=== PATIENT | female | born 1975 | race Caucasian/White ===

== ENCOUNTER 2016-03-23 17:18 | Emergency (ER) | payer SELFPAY ==
[2016-03-23] MEDS ORDERED: NORMAL SALINE 1000 ML 1,000 ML IV ONE (19:49)
[2016-03-23] MEDS ORDERED: ONDANSETRON HCL INJ/PF 4 MG/2 ML SDV IV ONE (19:49)
[2016-03-23] MEDS ORDERED: KETOROLAC TROMETHAMINE INJ/PF 30 MG/1 ML SDV IV ONE (19:49)
--- NOTE | 2016-03-23 19:52 | ER Document Report ---
ED General - General Chief Complaint: Flu Symptoms Stated Complaint: FEVER/VOMITING/DIARRHEA Time seen by provider: 19:40 Notes: Patient is a 40-year-old female that comes emergency department with chief complaint of fever and hurting all over today with nausea, she states that yesterday she was having nausea and vomiting, also vomited today, denies diarrhea, she states that she had a cough but this also seems to be improving. Patient denies any specific areas of abdominal pain, denies neck pain, flank pain, headache. Patient unsure of sick contacts. PMH of PCOS, takes no daily medications. TRAVEL OUTSIDE OF THE [place] IN LAST 30 DAYS: No - Related Data Allergies/Adverse Reactions: Antihistamines - Alkylamine Adverse Reaction (Verified 02/24/16 05:18) "allergy medicine" Adverse Reaction (Uncoded 07/13/15 13:43) Past Medical History - General Information source: Patient - Social History Smoking Status: Former Smoker Frequency of alcohol use: None Drug Abuse: None Lives with: Family Family History: Reviewed & Not Pertinent Pulmonary Medical History: Reports: Hx COPD Neurological Medical History: Reports: Hx Migraine Renal/ Medical History: Reports: Hx Kidney Stones, Hx Ovarian Cysts GI Medical History: Reports: Hx Gastroesophageal Reflux Disease Musculoskeltal Medical History: Reports Hx Arthritis Psychiatric Medical History: Reports: Hx Depression Past Surgical History: Reports: Hx Cholecystectomy, Hx Gynecologic Surgery - ovarian surgery, Hx Hysterectomy - Immunizations Immunizations up to date: Yes Hx Diphtheria, Pertussis, Tetanus Vaccination: Yes Review of Systems - Review of Systems Constitutional: See HPI EENT: No symptoms reported Cardiovascular: No symptoms reported Respiratory: See HPI Gastrointestinal: See HPI Genitourinary: No symptoms reported Female Genitourinary: No symptoms reported Musculoskeletal: See HPI Skin: No symptoms reported Hematologic/Lymphatic: No symptoms reported Neurological/Psychological: No symptoms reported Physical Exam - Vital signs Vitals: Temp Pulse Resp BP Pulse Ox 98.3 F 70 17 128/78 H 100 03/23/16 22:53 03/23/16 22:53 03/23/16 22:53 03/23/16 22:53 03/23/16 22:53 Interpretation: Normal - General General appearance: Alert, Other - Patient slightly disheveled and slightly under the weather in appearance, no distress In distress: None - HEENT Head: Normocephalic, Atraumatic Eyes: Normal Conjunctiva: Normal Extraocular movements intact: Yes Eyelashes: Normal Pupils: PERRL Ears: Normal External canal: Normal Tympanic membrane: Normal Sinus: Normal Nasal: Normal Mouth/Lips: Normal Mucous membranes: Normal Pharynx: Normal Neck: Normal - Respiratory Respiratory status: No respiratory distress Chest status: Nontender Breath sounds: Normal Chest palpation: Normal - Cardiovascular Rhythm: Regular Heart sounds: Normal auscultation Murmur: No - Abdominal Inspection: Normal Distension: No distension Bowel sounds: Normal Tenderness: Tender - Very mild generalized tenderness, nonspecific, no guarding Organomegaly: No organomegaly - Back Back: Normal, Nontender. No: Tender - Extremities General upper extremity: Normal inspection, Nontender, Normal color, Normal ROM , Normal temperature General lower extremity: Normal inspection, Nontender, Normal color, Normal ROM , Normal temperature, Normal weight bearing. No: Milagro's sign - Neurological Neuro grossly intact: Yes Cognition: Normal Orientation: AAOx4 Vera Coma Scale Eye Opening: Spontaneous Tridell Coma Scale Verbal: Oriented Vera Coma Scale Motor: Obeys Commands Vera Coma Scale Total: 15 Speech: Normal Motor strength normal: LUE, RUE, LLE, RLE Sensory: Normal - Psychological Associated symptoms: Normal affect, Normal mood - Skin Skin Temperature: Warm Skin Moisture: Dry Skin Color: Normal Course - Re-evaluation Re-evalutation: CBC, chemistry, urinalysis unremarkable, chest x-ray unremarkable, suspect patient has a viral syndrome. Treated with antinausea medications, provided with work release note. Discussed with patient, she states she'll follow-up with primary care and return for any concerning symptoms. - Vital Signs Vital signs: Temp Pulse Resp BP Pulse Ox 98.3 F 70 17 128/78 H 100 03/23/16 22:53 03/23/16 22:53 03/23/16 22:53 03/23/16 22:53 03/23/16 22:53 - Laboratory Result Diagrams: 03/23/16 21:00 03/23/16 21:00 Laboratory results interpreted by me: 03/23/16 03/23/16 21:00 21:00 Total Protein 6.0 L Ur Leukocyte Esterase TRACE H Discharge - Discharge Clinical Impression: Nausea, Body aches Condition: Stable Disposition: HOME, SELF-CARE Additional Instructions: Your workup is most consistent with a viral illness. Take Zofran or Phenergan for nausea, take Tylenol or ibuprofen for fever, drink plenty of fluids and rest. Follow-up with primary care. Return to emergency department for any concerning or worsening symptoms. Prescriptions: Promethazine HCl [Phenergan 25 mg Tablet] 1 - 2 tab PO Q6H PRN #20 tablet PRN Reason: Forms: Return to Work
[2016-03-23 21:20] LABS: ABSOLUTE BASOPHILS # (AUTO) 0.1 10^3/uL (0.0-0.2); ABSOLUTE EOSINOPHILS # (AUTO) 0.5 10^3/uL (0.0-0.6); ABSOLUTE LYMPHOCYTES (AUTO) 3.1 10^3/uL (0.5-4.7); ABSOLUTE MONOCYTES (AUTO) 0.8 10^3/uL (0.1-1.4); ABSOLUTE NEUT (AUTO) 5.1 10^3/uL (1.7-8.2); BASOPHILS % (AUTO) 0.7 % (0-2); EOSINOPHILS % (AUTO) 5.2 % (0-6); HEMOGLOBIN 14.3 g/dL (12.0-15.5); HGB HCT DIFFERENCE 0.9; LYMPHOCYTES % (AUTO) 32.4 % (13-45); MEAN CORPUSCULAR HEMOGLOBIN 30.9 pg (27.0-33.4); MEAN CORPUSCULAR VOLUME 91 fl (80-97); MONOCYTES % (AUTO) 8.1 % (3-13); RED BLOOD COUNT 4.63 10^6/uL (3.72-5.28); SEGMENTED NEUTROPHILS % (AUTO) 53.6 % (42-78); WHITE BLOOD COUNT 9.5 10^3/uL (4.0-10.5)
[2016-03-23 21:35] LABS: ALANINE AMINOTRANSFERASE 39 U/L (9-52); ALBUMIN 3.7 g/dL (3.5-5.0); ALKALINE PHOSPHATASE 69 U/L (38-126); ANION GAP 9 (5-19); ASPARTATE AMINO TRANSFERASE 21 U/L (14-36); BILIRUBIN,TOTAL 0.6 mg/dL (0.2-1.3); BLOOD UREA NITROGEN 12 mg/dL (7-20); CALCIUM 8.9 mg/dL (8.4-10.2); CARBON DIOXIDE 27 mmol/L (22-30); CHLORIDE 103 mmol/L (98-107); CREATININE RESULT 0.83 mg/dL (0.52-1.25); GLUCOSE 108 mg/dL (75-110); POTASSIUM 4.1 mmol/L (3.6-5.0); SODIUM 138.7 mmol/L (137-145)
[2016-03-23 21:37] LABS: AMORPHOUS SEDIMENT,URINE TRACE /HPF; APPEARANCE,URINE CLOUDY; BILIRUBIN,URINE NEGATIVE (NEGATIVE); GLUCOSE, URINE NEGATIVE (NEGATIVE); KETONES,URINE NEGATIVE (NEGATIVE); LEUKOCYTE ESTERASE,URINE TRACE (NEGATIVE); NITRITE,URINE NEGATIVE (NEGATIVE); PROTEIN,URINE NEGATIVE (NEGATIVE); UROBILINOGEN,URINE NEGATIVE mg/dL (<2.0)
[2016-03-23] MEDS ORDERED: ONDANSETRON ODT 4 MG TAB (6 TAB/DSPK) PO PRN (22:36)
[2016-03-23 22:54] VITALS: BP 128/78
[2016-03-23] MEDS ORDERED: HYDROCODONE/ACETAMINOPHEN 5-325 MG 6 TAB/DSPK PO PRN (23:03)
== END 2016-03-23 23:10 | disposition home or self-care (01) ==
LOC: ER 17:18
DX: R11.2 Nausea with vomiting, unspecified (principal); R52 Pain, unspecified; R50.9 Fever, unspecified; R10.817 Generalized abdominal tenderness; J44.9 Chronic obstructive pulmonary disease, unspecified; Z87.891 Personal history of nicotine dependence
CPT/HCPCS: 99283; 96361; 96374; 36415; 85025; 81025; 80053; 81001; 71020; J1885; J2405; J7030

== ENCOUNTER 2016-05-03 13:18 | Emergency (ER) | payer SELFPAY ==
--- NOTE | 2016-05-03 13:39 | ER Document Report ---
ED Medical Screen (RME) - General Stated Complaint: SORE THROAT,SWELLING Time seen by provider: 13:38 Mode of Arrival: Ambulatory Information source: Patient Notes: 40-year-old female ate a chili dog at [facility] and found glass that she was chewing on that was in the chili. They used canned [employer] chili. She feels some irritation to the posterior pharynx and feels a little swollen farther down. Oropharynx no swelling by my physical exam at [facility]. feels raw. TRAVEL OUTSIDE OF THE [place] IN LAST 30 DAYS: No - Related Data Allergies/Adverse Reactions: Antihistamines - Alkylamine Adverse Reaction (Verified 02/24/16 05:18) "allergy medicine" Adverse Reaction (Uncoded 07/13/15 13:43) Past Medical History Pulmonary Medical History: Reports: Hx COPD Neurological Medical History: Reports: Hx Migraine Renal/ Medical History: Reports: Hx Kidney Stones, Hx Ovarian Cysts GI Medical History: Reports: Hx Gastroesophageal Reflux Disease Musculoskeltal Medical History: Reports Hx Arthritis Psychiatric Medical History: Reports: Hx Depression Past Surgical History: Reports: Hx Cholecystectomy, Hx Gynecologic Surgery - ovarian surgery, Hx Hysterectomy - Immunizations Immunizations up to date: Yes Hx Diphtheria, Pertussis, Tetanus Vaccination: Yes Physical Exam - Vital signs Vitals: Temp Pulse Resp BP Pulse Ox 98.1 F 86 20 117/75 97 05/03/16 13:32 05/03/16 13:32 05/03/16 13:32 05/03/16 13:32 05/03/16 13:32 Course - Vital Signs Vital signs: Temp Pulse Resp BP Pulse Ox 98.1 F 86 20 117/75 97 05/03/16 13:32 05/03/16 13:32 05/03/16 13:32 05/03/16 13:32 05/03/16 13:32
--- NOTE | 2016-05-03 14:20 | ER Document Report ---
HPI - HPI Patient complains to provider of: swallowed glass Onset: This afternoon Onset/Duration: Sudden Quality of pain: Burning Severity: Severe Pain Level: 4 Context: Patient presents to the emergency department with complaints of sore throat after eating a chili dog confining glass in it from [employer]. Patient presents with picture of a piece of glass approximately 1 mm on the tip of her finger. Patient is speaking in clear voice. Patient denies spitting up blood. Patient reports something feels like it stuck in her throat. Associated Symptoms: None Exacerbated by: Denies Relieved by: Denies Similar symptoms previously: No Recently seen / treated by doctor: No - REPRODUCTIVE Reproductive: DENIES: : - DERM Skin Color: Normal, [place] Past Medical History - General Information source: Patient Last Menstrual Period: mar - Social History Smoking Status: Current Every Day Smoker Cigarette use (# per day): Yes Frequency of alcohol use: None Drug Abuse: None Occupation: [employer] Family History: Reviewed & Not Pertinent, Thyroid Disfunction - brother Patient has suicidal ideation: No Patient has homicidal ideation: No Pulmonary Medical History: Reports: Hx COPD Neurological Medical History: Reports: Hx Migraine Renal/ Medical History: Reports: Hx Kidney Stones, Hx Ovarian Cysts. Denies: Hx Peritoneal Dialysis GI Medical History: Reports: Hx Gastroesophageal Reflux Disease Musculoskeltal Medical History: Reports Hx Arthritis Psychiatric Medical History: Reports: Hx Depression Past Surgical History: Reports: Hx Cholecystectomy, Hx Gynecologic Surgery - ovarian surgery, Hx Hysterectomy - Immunizations Immunizations up to date: Yes Hx Diphtheria, Pertussis, Tetanus Vaccination: Yes Vertical Provider Document - CONSTITUTIONAL Agree With Documented VS: Yes Exam Limitations: No Limitations General Appearance: WD/WN, No Apparent Distress - INFECTION CONTROL TRAVEL OUTSIDE OF THE [place] IN LAST 30 DAYS: No - HEENT HEENT: Atraumatic, Normocephalic. negative: Pharyngeal Erythema - No peritonsillar abscess good clear voice no trismus, opens mouth wide, no lacerations noted, drinking mountain dew - NECK Neck: Normal Inspection, Supple. negative: Lymphadenopathy-Left, Lymphadenopathy-Right - RESPIRATORY Respiratory: Breath Sounds Normal, No Respiratory Distress O2 Sat by Pulse Oximetry: 97 - CARDIOVASCULAR Cardiovascular: Regular Rate - MUSCULOSKELETAL/EXTREMETIES Musculoskeletal/Extremeties: ROWENA BALDWIN - NEURO Level of Consciousness: Awake, Alert, Appropriate Motor/Sensory: No Motor Deficit - DERM Integumentary: Warm, Dry Course - Re-evaluation Re-evalutation: 05/03/16 18:28 I have consulted the attending provider dr espinoza per [facility] guidelines, he agrees with ct soft tissue Reviewed results with Dr Espinoza, pt advised to fu with pcp, [facility] for further eval of thyroid nodule. She was instructed to return to ED if unable to obtain fu or problems swallowing, she was also instructed to monitor her stool for blood. She verbalized understanding. - Vital Signs Vital signs: Temp Pulse Resp BP Pulse Ox 98.1 F 86 20 117/75 97 05/03/16 13:39 05/03/16 13:39 05/03/16 13:39 05/03/16 13:39 05/03/16 13:39 - Diagnostic Test Radiology reviewed: Image reviewed, Reports reviewed - IMPRESSION: 1. No CT evidence of esophageal foreign body. 2. Nonspecific thyroid nodules as detailed above. Consider routine thyroid ultrasound on an outpatient basis. Discharge - Discharge Clinical Impression: Sore throat, swallowed glass, Thyroid nodule Condition: Stable Disposition: HOME, SELF-CARE Instructions: Sore Throat ([facility]), Family Physicians / Practices Additional Instructions: *You have been evaluated for after swallowing glass , thyroid nodule *Warm salt water gargles and throat lozenges for comfort *Follow-up with your primary care provider within one week for a recheck of your throat and evaluation of thyroid with Ultra sound *Return to ED for worsening condition change, needs, difficulty swallowing, concerns Forms: Return to Work
[2016-05-03 17:29] VITALS: BP 118/74
== END 2016-05-03 17:20 | disposition home or self-care (01) ==
LOC: ER 13:18
DX: T18.9XXA Foreign body of alimentary tract, part unspecified, initial encounter (principal); J02.9 Acute pharyngitis, unspecified; E04.1 Nontoxic single thyroid nodule; X58.XXXA Exposure to other specified factors, initial encounter; F17.210 Nicotine dependence, cigarettes, uncomplicated
CPT/HCPCS: 70360; 70491; 99283

== ENCOUNTER 2016-09-19 20:08 | Emergency (ER) | payer SELFPAY ==
[2016-09-19] MEDS ORDERED: CIPROFLOXACIN HCL/DEXAMETH OTIC DROP 7.5 ML AS ONE (22:16)
[2016-09-19] MEDS ORDERED: HYDROCODONE/ACETAMINOPHEN 5-325 MG 6 TAB/DSPK PO PRN (22:16)
--- NOTE | 2016-09-19 22:26 | ER Document Report ---
HPI - HPI Patient complains to provider of: left ear pain, rash Pain Level: 5 Context: Patient is a 40-year-old female who comes emergency department for chief complaint of left ear pain, she states that this has progressively worsened over the past several days, she states that there is also a pimple-like area inside of the earlobe that she scratched open and now the area around this has become red. She wonders if she was originally bitten by an insect. Up-to-date on tetanus within 5 years. she denies any fever or chills, drainage from the ear , dizziness, vomiting, injury, or recent swimming. - REPRODUCTIVE Reproductive: DENIES: : - DERM Skin Color: Normal Past Medical History - General Information source: Patient - Social History Smoking Status: Former Smoker Drug Abuse: None Lives with: Family Family History: Reviewed & Not Pertinent, Thyroid Disfunction - brother Patient has suicidal ideation: No Patient has homicidal ideation: No Pulmonary Medical History: Reports: Hx COPD Neurological Medical History: Reports: Hx Migraine Renal/ Medical History: Reports: Hx Kidney Stones, Hx Ovarian Cysts. Denies: Hx Peritoneal Dialysis GI Medical History: Reports: Hx Gastroesophageal Reflux Disease Musculoskeltal Medical History: Reports Hx Arthritis Psychiatric Medical History: Reports: Hx Depression Past Surgical History: Reports: Hx Cholecystectomy, Hx Gynecologic Surgery - ovarian surgery, Hx Hysterectomy - Immunizations Immunizations up to date: Yes Hx Diphtheria, Pertussis, Tetanus Vaccination: Yes Vertical Provider Document - CONSTITUTIONAL General Appearance: WD/WN, Mild Distress - Patient appears to be in some pain, holding her left ear - INFECTION CONTROL TRAVEL OUTSIDE OF THE [place] IN LAST 30 DAYS: No - HEENT HEENT: Atraumatic, Normocephalic. negative: Normal ENT Exam - Eardrums unremarkable bilaterally, left ear canal very swollen with erythema, no abscess or foreign body noted, no drainage. Tragus is tender, there is also erythema inside of the earlobe with an excoriated area, no induration or fluctuance. Mastoid normal. - NECK Neck: Normal Inspection - RESPIRATORY Respiratory: Breath Sounds Normal, No Respiratory Distress O2 Sat by Pulse Oximetry: 98 - CARDIOVASCULAR Cardiovascular: Regular Rate, Regular Rhythm - GI/ABDOMEN Gastrointestinal: Abdomen Soft, Abdomen Non-Tender - MUSCULOSKELETAL/EXTREMETIES Musculoskeletal/Extremeties: MAEW, FROM, Non-Tender - NEURO Level of Consciousness: Awake, Alert, Appropriate - DERM Integumentary: Warm, Dry, No Rash Course - Re-evaluation Re-evalutation: There is an excoriated area over the external ear with some mild surrounding redness but no induration or fluctuance. Covering the Bactrim. Ear wick placed for otitis externa, patient given Ciprodex drops to continue to use at home, patient will be given pain medication, discussed follow-up, discussed return precautions, patient states understanding and agreement - Vital Signs Vital signs: Temp Pulse Resp BP Pulse Ox 98.6 F 105 H 18 140/87 H 98 09/19/16 20:14 09/19/16 20:14 09/19/16 20:14 09/19/16 20:14 09/19/16 20:14 Discharge - Discharge Clinical Impression: Left ear pain Otitis externa Qualifiers: Otitis externa type: unspecified type Chronicity: acute Laterality: left Qualified Code(s): H60.502 - Unspecified acute noninfective otitis externa, left ear Condition: Stable Disposition: HOME, SELF-CARE Instructions: Use of Ear Drops ([facility]), Otitis Externa ([facility]), Using Ear Drops with a Wick ([facility]) Additional Instructions: Examination shows infection of the ear canal, otitis externa, use the wick, apply the drops in the wick as the insert describes (take drops for 1 week), also take the Bactrim antibiotic from localized skin infection on the outside of the ear. Take pain medication given if needed. Return to emergency department for any concerning or worsening symptoms including dizziness, vomiting, fever, swelling of the ear or behind the ear, or any other concerning symptoms. Prescriptions: Hydrocodone/Acetaminophen [Clemons 5-325 mg Tablet] 1 - 2 tab PO ASDIR #10 tablet Sulfamethoxazole/Trimethoprim [Bactrim Ds Tablet] 1 each PO BID #14 tablet
[2016-09-19 22:38] VITALS: BP 134/77
== END 2016-09-19 22:41 | disposition home or self-care (01) ==
LOC: ER 20:08
DX: H60.502 Unspecified acute noninfective otitis externa, left ear (principal); H92.02 Otalgia, left ear; J44.9 Chronic obstructive pulmonary disease, unspecified; Z87.891 Personal history of nicotine dependence
CPT/HCPCS: 99282; J3490

== ENCOUNTER 2017-10-28 22:10 | Emergency (ER) | payer SELFPAY ==
[2017-10-29] MEDS ORDERED: CLINDAMYCIN HCL 150 MG CAPSULE PO ONE (01:09)
--- NOTE | 2017-10-29 01:11 | ER Document Report ---
ED General - General Chief Complaint: Insect Bite Stated Complaint: INFECTED BITE,BACK PAIN Time Seen by Provider: 10/29/17 00:33 Notes: Patient is a 42-year-old female who presents with complaint of a red spot on her left thigh that she thinks may be infected. She denies any fevers. She has been there for about 2 days. No other complaints at this time. No previous history of abscesses. She does not member pulling any bugs off or any ticks off her in this area. TRAVEL OUTSIDE OF THE [place] IN LAST 30 DAYS: No - Related Data Allergies/Adverse Reactions: Antihistamines - Alkylamine Adverse Reaction (Verified 02/24/16 05:18) "allergy medicine" Adverse Reaction (Uncoded 07/13/15 13:43) Past Medical History - Social History Smoking Status: Unknown if Ever Smoked Frequency of alcohol use: None Drug Abuse: None Family History: Reviewed & Not Pertinent, Thyroid Disfunction - brother Pulmonary Medical History: Reports: Hx COPD Neurological Medical History: Reports: Hx Migraine Renal/ Medical History: Reports: Hx Kidney Stones, Hx Ovarian Cysts. Denies: Hx Peritoneal Dialysis GI Medical History: Reports: Hx Gastroesophageal Reflux Disease Musculoskeletal Medical History: Reports Hx Arthritis Psychiatric Medical History: Reports: Hx Depression Past Surgical History: Reports: Hx Cholecystectomy, Hx Gynecologic Surgery - ovarian surgery, Hx Hysterectomy - Immunizations Immunizations up to date: Yes Hx Diphtheria, Pertussis, Tetanus Vaccination: Yes Review of Systems - Review of Systems Notes: My Normal Review Basic REVIEW OF SYSTEMS: CONSTITUTIONAL : Denies fever, chills, or sweats. Denies recent illness. MUSCULOSKELETAL: Painful red lesion on left thigh. SKIN: Denies rash or skin lesions. ALL OTHER SYSTEMS REVIEWED AND NEGATIVE. Physical Exam - Vital signs Vitals: Temp Pulse Resp BP Pulse Ox 98.0 F 92 18 133/86 H 98 10/28/17 23:01 10/28/17 23:01 10/28/17 23:01 10/28/17 23:01 10/28/17 23:01 - Notes Notes: General Appearance: Well nourished, alert, cooperative, no acute distress, no obvious discomfort. Vitals: reviewed, See vital signs table. Eyes: PERRL, EOMI, Conjuctiva clear Extremities: good pulses in all extremities, shins has a 1 cm area of induration with approximately 3 cm of surrounding erythema over the left thigh. No significant fluctuance. Consistent with infected hair follicle. Skin: warm, dry, appropriate color, no rash Neuro: speech clear, oriented x 3, normal affect, responds appropriately to questions. Course - Re-evaluation Re-evalutation: 10/29/17 07:24 Point quick needle aspiration over the area of induration see if there is an associated pus. There is no pus aspirated. Patient was placed on clindamycin. She is encouraged to return to ER if she has spreading redness, increasing swelling or induration, fevers, or she feels that she is worsening in any way. Patient agrees with plan will be discharged home. Dictation of this chart was performed using voice recognition software; therefore, there may be some unintended grammatical errors. - Vital Signs Vital signs: Temp Pulse Resp BP Pulse Ox 97.8 F 81 16 147/89 H 97 10/29/17 01:41 10/29/17 01:41 10/29/17 01:41 10/29/17 01:41 10/29/17 01:41 Discharge - Discharge Clinical Impression: Hair follicle infection Cellulitis Qualifiers: Site of cellulitis: extremity Site of cellulitis of extremity: lower extremity Laterality: left Qualified Code(s): L03.116 - Cellulitis of left lower limb Condition: Good Disposition: HOME, SELF-CARE Additional Instructions: Please take the antibiotics as prescribed. please apply warm compresses. Please return to the ER if you have spreading redness, fevers, increasing swelling, or feel that your infection is worsening. Prescriptions: Clindamycin HCl 300 mg PO ASDIR #56 capsule Forms: Return to Work Referrals: ISABELL HOBSON MD [Primary Care Provider] - Follow up in 3-5 days
[2017-10-29 01:43] VITALS: BP 147/89
== END 2017-10-29 01:49 | disposition home or self-care (01) ==
LOC: ER 22:10
DX: L03.116 Cellulitis of left lower limb (principal); J44.9 Chronic obstructive pulmonary disease, unspecified
CPT/HCPCS: 99281

== ENCOUNTER 2018-12-27 16:45 | Emergency (ER) | payer SELFPAY ==
--- NOTE | 2018-12-27 19:13 | ER Document Report ---
ED Medical Screen (RME) - General Chief Complaint: Flank Pain Stated Complaint: FLANK PAIN Time Seen by Provider: 12/27/18 19:10 Primary Care Provider: ISABELL HOBSON MD [Primary Care Provider] - Follow up as needed Mode of Arrival: Ambulatory Information source: Patient Notes: 43-year-old female presents to ED for complaint of cough cold congestion fatigue renal insufficiency and bilateral flank pain worse on the right. She states she is also been nauseated but has not vomited. She states she just is so fatigued that she can barely go to work. She is alert oriented respirations regular and unlabored. She states she does have a history of renal insufficiency PCOS vertigo and kidney stones. She has had a gallbladder removed and kidney stones removed. She states she does smoke 15 cigarettes a day drinks monthly does not do any illicit drugs. I have greeted and performed a rapid initial assessment of this patient. A comprehensive ED assessment and evaluation of the patient, analysis of test results and completion of medical decision making process will be conducted by an additional ED providers. TRAVEL OUTSIDE OF THE [place] IN LAST 30 DAYS: No - Related Data Allergies/Adverse Reactions: Antihistamines - Alkylamine Adverse Reaction (Verified 02/24/16 05:18) "allergy medicine" Adverse Reaction (Uncoded 07/13/15 13:43) Past Medical History Pulmonary Medical History: Reports: Hx COPD Neurological Medical History: Reports: Hx Migraine Renal/ Medical History: Reports: Hx Kidney Stones, Hx Ovarian Cysts. Denies: Hx Peritoneal Dialysis GI Medical History: Reports: Hx Gastroesophageal Reflux Disease Musculoskeltal Medical History: Reports Hx Arthritis Psychiatric Medical History: Reports: Hx Depression Past Surgical History: Reports: Hx Cholecystectomy, Hx Gynecologic Surgery - ovarian surgery, Hx Hysterectomy - Immunizations Immunizations up to date: Yes Hx Diphtheria, Pertussis, Tetanus Vaccination: Yes Physical Exam - Vital signs Vitals: Temp Pulse Resp BP Pulse Ox 99.0 F 91 18 132/80 H 98 12/27/18 17:45 12/27/18 17:45 12/27/18 17:45 12/27/18 17:45 12/27/18 17:45 Course - Vital Signs Vital signs: Temp Pulse Resp BP Pulse Ox 99.0 F 91 18 132/80 H 98 12/27/18 17:45 12/27/18 17:45 12/27/18 17:45 12/27/18 17:45 12/27/18 17:45 Doctor's Discharge - Discharge Referrals: ISABELL HOBSON MD [Primary Care Provider] - Follow up as needed
--- NOTE | 2018-12-27 20:01 | RADIOLOGY REPORT (SQ) ---
EXAM DESCRIPTION: CHEST 2 VIEWS COMPLETED DATE/TIME: 12/27/2018 7:51 pm REASON FOR STUDY: Cough congestion COMPARISON: 03/23/2016 EXAM PARAMETERS: NUMBER OF VIEWS: two views TECHNIQUE: Digital Frontal and Lateral radiographic views of the chest acquired. RADIATION DOSE: NA LIMITATIONS: none FINDINGS: LUNGS AND PLEURA: No opacities, masses or pneumothorax. No pleural effusion. MEDIASTINUM AND HILAR STRUCTURES: No masses or contour abnormalities. HEART AND VASCULAR STRUCTURES: Heart normal size. No evidence for failure. BONES: No acute findings. HARDWARE: None in the chest. OTHER: No other significant finding. IMPRESSION: NO ACUTE RADIOGRAPHIC FINDING IN THE CHEST. TECHNICAL DOCUMENTATION: JOB ID: [id number] [employer]- All Rights Reserved Reading location - IP/workstation name: [email or web address]
[2018-12-27 20:30] LABS: ABSOLUTE EOSINOPHILS # (AUTO) 0.4 10^3/uL (0.0-0.6); ABSOLUTE LYMPHOCYTES (AUTO) 1.2 10^3/uL (0.5-4.7); ABSOLUTE MONOCYTES (AUTO) 0.7 10^3/uL (0.1-1.4); BASOPHILS % (AUTO) 0.4 % (0-2); EOSINOPHILS % (AUTO) 5.2 % (0-6); HEMATOCRIT 41.8 % (36.0-47.0); HEMOGLOBIN 14.1 g/dL (12.0-15.5); LYMPHOCYTES % (AUTO) 16.9 % (13-45); MEAN CORPUSCULAR HEMOGLOBIN 30.2 pg (27.0-33.4); MEAN CORPUSCULAR HGB CONC 33.8 g/dL (32.0-36.0); MEAN CORPUSCULAR VOLUME 89 fl (80-97); MONOCYTES % (AUTO) 9.5 % (3-13); PLATELET COUNT 199 10^3/uL (150-450); RED BLOOD COUNT 4.68 10^6/uL (3.72-5.28); RED CELL DISTRIBUTION WIDTH 13.6 % (11.5-14.0); TOTAL CELLS COUNTED % (AUTO) 100 %; WHITE BLOOD COUNT 7.4 10^3/uL (4.0-10.5)
[2018-12-27 20:32] LABS: APPEARANCE,URINE SLIGHTLY-CLOUDY; BILIRUBIN,URINE NEGATIVE (NEGATIVE); COLOR,URINE YELLOW; GLUCOSE, URINE NEGATIVE (NEGATIVE); KETONES,URINE NEGATIVE (NEGATIVE); LEUKOCYTE ESTERASE,URINE NEGATIVE (NEGATIVE); NITRITE,URINE NEGATIVE (NEGATIVE); PROTEIN,URINE NEGATIVE (NEGATIVE); URINE SPECIFIC GRAVITY 1.021; UROBILINOGEN,URINE NEGATIVE mg/dL (<2.0)
[2018-12-27 21:01] LABS: BLOOD UREA NITROGEN 18 mg/dL (7-20); CALCIUM 9.5 mg/dL (8.4-10.2); CHLORIDE 103 mmol/L (98-107); GLUCOSE 84 mg/dL (75-110); POTASSIUM 4.3 mmol/L (3.6-5.0)
[2018-12-27 21:02] LABS: ALKALINE PHOSPHATASE 74 U/L (38-126); ANION GAP 6 (5-19); ASPARTATE AMINO TRANSFERASE 19 U/L (14-36); BILIRUBIN,DIRECT 0.2 mg/dL (0.0-0.4); BILIRUBIN,TOTAL 0.4 mg/dL (0.2-1.3); CARBON DIOXIDE 29 mmol/L (22-30)
--- NOTE | 2018-12-27 22:27 | RADIOLOGY REPORT (SQ) ---
EXAM DESCRIPTION: US RETROPERITONEUM COMPLETED DATE/TME: 12/27/2018 19:14 CLINICAL HISTORY: 43 years, Female, Kidney pain worse on the right COMPARISON: None. TECHNIQUE: LIMITATIONS: None. FINDINGS: The right kidney measures 12.6 cm in length. The left kidney measures 11.9 cm in length. No hydronephrosis or renal stone. IMPRESSION: No sonographic abnormality. copyright 2010 [employer]- All Rights Reserved
--- NOTE | 2018-12-27 23:58 | ER Document Report ---
ED GI/ - General Chief Complaint: Flank Pain Stated Complaint: FLANK PAIN Time Seen by Provider: 12/27/18 19:10 Primary Care Provider: ISABELL HOBSON MD [NO LOCAL MD] - Follow up as needed Mode of Arrival: Ambulatory Information source: Patient Notes: 43-year-old female presented to ED for complaint of cough cold congestion fatigue and renal insufficiency and bilateral flank pain worse tonight. She states she has been nauseated but has not vomited. She states she is so fatigued she can barely go to work. She was alert oriented respirations regular and unlabored. I did see her earlier in the day completed labs x-ray and renal ultrasound. Discussed labs and x-ray and ultrasound with patient. There were no significant abnormalities noted. I did discuss these results and instructed patient to follow-up with her primary doctor. TRAVEL OUTSIDE OF THE [place] IN LAST 30 DAYS: No - HPI Patient complains to provider of: Flank pain, Other - URI. No: Vomiting Onset: Last week Timing/Duration: Persistent, Worse Quality of pain: Achy Severity at maximum: Moderate Severity in ED: Moderate Pain Level: 3 Location: Left flank, Right flank Vaginal bleeding (Compared to normal period): None Associated symptoms: Nausea, Other - Bilateral flank pain worse on the right, cough congestion runny nose Exacerbated by: Movement Relieved by: Denies Similar symptoms previously: Yes Recently seen / treated by doctor: No - Related Data Allergies/Adverse Reactions: Antihistamines - Alkylamine Adverse Reaction (Verified 02/24/16 05:18) "allergy medicine" Adverse Reaction (Uncoded 07/13/15 13:43) Past Medical History - General Information source: Patient - Social History Smoking Status: Current Every Day Smoker Cigarette use (# per day): Yes - 15 cigarettes a day Smoking Education Provided: Yes - 4 minutes Drug Abuse: None Lives with: Family Family History: Reviewed & Not Pertinent, Thyroid Disfunction - brother Patient has suicidal ideation: No Patient has homicidal ideation: No - Past Medical History Cardiac Medical History: Reports: None Pulmonary Medical History: Reports: None EENT Medical History: Reports: None Neurological Medical History: Reports: Hx Migraine Endocrine Medical History: Reports: None Renal/ Medical History: Reports: Hx Kidney Stones, Hx Ovarian Cysts Malignancy Medical History: Reports: None GI Medical History: Reports: Hx Gastroesophageal Reflux Disease Musculoskeletal Medical History: Reports Hx Arthritis Skin Medical History: Reports None Psychiatric Medical History: Reports: None, Hx Depression Traumatic Medical History: Reports: None Infectious Medical History: Reports: None Past Surgical History: Reports: Hx Cholecystectomy, Hx Gynecologic Surgery - ovarian surgery - Immunizations Immunizations up to date: Yes Hx Diphtheria, Pertussis, Tetanus Vaccination: Yes Review of Systems - Review of Systems Constitutional: Recent illness EENT: No symptoms reported, Nose congestion, Nose discharge, Sinus discharge Cardiovascular: No symptoms reported Respiratory: Cough Gastrointestinal: Nausea Genitourinary: Flank pain Female Genitourinary: No symptoms reported Musculoskeletal: No symptoms reported Skin: No symptoms reported Hematologic/Lymphatic: No symptoms reported Neurological/Psychological: No symptoms reported -: Yes All other systems reviewed and negative Physical Exam - Vital signs Vitals: Temp Pulse Resp BP Pulse Ox 99.0 F 91 18 132/80 H 98 12/27/18 17:45 12/27/18 17:45 12/27/18 17:45 12/27/18 17:45 12/27/18 17:45 Interpretation: Normal - General General appearance: Appears well, Alert - HEENT Head: Normocephalic, Atraumatic Eyes: Normal Pupils: PERRL Ears: Normal External canal: Normal Tympanic membrane: Normal Sinus: Normal Nasal: Purulent discharge, Swelling Mouth/Lips: Normal Mucous membranes: Normal Pharynx: Post nasal drainage Neck: Normal - Respiratory Respiratory status: No respiratory distress Chest status: Nontender Breath sounds: Nonproductive cough. No: Rales, Rhonchi, Stridor, Wheezing Chest palpation: Normal - Cardiovascular Rhythm: Regular Heart sounds: Normal auscultation Murmur: No - Abdominal Inspection: Normal Distension: No distension Bowel sounds: Normal Tenderness: Nontender Organomegaly: No organomegaly - Back Back: Normal, Tender, CVA tenderness - Bilateral. No: Vertebra tenderness, Scars, Scoliosis, Wounds - Extremities General upper extremity: Normal inspection, Nontender, Normal color, Normal ROM, Normal temperature General lower extremity: Normal inspection, Nontender, Normal color, Normal ROM, Normal temperature, Normal weight bearing. No: Milagro's sign - Neurological Neuro grossly intact: Yes Cognition: Normal Orientation: AAOx4 Vera Coma Scale Eye Opening: Spontaneous Vera Coma Scale Verbal: Oriented [place] Coma Scale Motor: Obeys Commands Vera Coma Scale Total: 15 Speech: Normal Motor strength normal: LUE, RUE, LLE, RLE Sensory: Normal - Psychological Associated symptoms: Normal affect, Normal mood - Skin Skin Temperature: Warm Skin Moisture: Dry Skin Color: Normal Course - Re-evaluation Re-evalutation: 12/28/18 03:00 Discussed x-ray and ultrasound as well as labs with patient and written report of labs ultrasound and x-ray given to patient. Patient was discharged home instructed to follow-up with primary care doctor. - Vital Signs Vital signs: Temp Pulse Resp BP Pulse Ox 98.6 F 74 18 137/91 H 98 12/28/18 00:04 12/28/18 00:04 12/27/18 17:45 12/28/18 00:04 12/28/18 00:04 - Laboratory Result Diagrams: 12/27/18 20:00 12/27/18 20:00 Laboratory results interpreted by me: 12/27/18 12/27/18 20:00 20:00 Est GFR (MDRD) Non-Af 59 L Urine Blood MODERATE H - Diagnostic Test Radiology reviewed: Image reviewed, Reports reviewed Discharge - Discharge Clinical Impression: Flank pain URI (upper respiratory infection) Qualifiers: URI type: unspecified viral URI Qualified Code(s): J06.9 - Acute upper respiratory infection, unspecified Condition: Stable Disposition: HOME, SELF-CARE Instructions: Family Physicians / Practices Additional Instructions: Flank Pain We weren't able to prove an exact cause for your flank pain. Pain in the flank can be caused by a muscle strain or spasm. Sometimes a kidney stone causes pain, but can't be found on our tests. Infection in the kidney should be evident on a urine test. Early shingles can occasionally cause flank pain, without the rash that proves the diagnosis. On rare occasions, disease of the pancreas, aorta, spleen, or colon can create pain in the flank. At this time, there's no evidence of a dangerous condition, and it seems safe for you to be at home. If the pain goes away and does not come back, no further testing will be needed. If pain persists, or becomes more severe, we may need to repeat some tests or order additional new testing. Blood in the urine, urgency to urinate frequently, and pain that radiates to the groin can indicate a kidney stone. Fever may mean that the pain is due to infection, either of the kidney or the colon (diverticulitis). If your pain is early shingles, you should develop an eruption of blisters in the painful area within a few days. Call the doctor or return if you have pain that is spreading or becoming more severe, pain that does not resolve with time, fever, or any other new symptoms. UPPER RESPIRATORY ILLNESS: You have a viral infection of the respiratory passages -- a "cold." This common infection causes nasal congestion, drainage, and often sore throat and cough. It is highly contagious. The disease usually lasts about 10 to 14 days. There is no "cure" for the viral infection -- it must run its course. If there is a complication, such as bacterial infection in the nose, sinuses, middle ear, or bronchial tubes, antibiotics may be required. The antibiotics won't affect the virus. Drink plenty of fluids. A humidifier may help. An expectorant medication or decongestant may make you more comfortable. Use acetaminophen or ibuprofen for fever or aches. See the doctor if fever persists over two days, if there is any significant worsening of your symptoms, or if you simply fail to improve as expected. DECONGESTANT MEDICATION: A decongestant medicine has been suggest. Often this medicine is combined in the same tablet with an antihistamine or expectorant. This type of medicine is helpful in treating a bad cold or sinus condition, as well as in treatment of the nasal congestion of hay fever. It is not of much benefit for lung infecti ons. Decongestant medicines are related to stimulants. They can cause an increase in blood pressure and heart rate. Persons with heart disease and high blood pressure should not take decongestants without discussing this with the physician. If you develop palpitations, chest pain, headache, or tremors, stop the medicine and consult your physician. COUGH-SUPPRESSANT & EXPECTORANT MEDICATION: You are to use a cough medication as needed for relief of symptoms. This medicine is a combination of an expectorant (to make the mucous thinner and more easily "coughed up") and a cough suppressant (to reduce the frequency of coughing). The cough-suppressant medicine is related to narcotics. You may experience mild nausea and sleepiness. Some patients who are very sensitive to narcotics may have stomach pain from this medicine. Taking the medicine with food reduces these side effects. Do not drive or work with machinery until you know how this medicine affects you. The expectorant should have no side effects. Iodine-containing expectorants (such as organidin) should not be taken by persons with active thyroid disease unless approved by your doctor. Call the doctor if you develop shortness of breath, hives, rash, itching, lightheadedness, or severe nausea and vomiting. USE OF ACETAMINOPHEN (Tylenol): Acetaminophen may be taken for pain relief or fever control. It's much safer than aspirin, offering a wider range of "safe" dosages. It is safe during . Some brand names are Tylenol, Panadol, Datril, Anacin 3, Tempra, and Liquiprin. Acetaminophen can be repeated every four hours. The following are maximum recommended dosages: >89 pounds or adults 650 mg to 900 mg Acetaminophen can be repeated every four hours. Maximum dose not to exceed 4000 mg a day. SMOKING: If you smoke, you should stop smoking. The tar and chemicals in cigarette smoke are harmful. Smoking has been shown to cause: emphysema chronic bronchitis lung cancer mouth and throat cancer stomach and pancreas cancer premature aging defects In addition, smoking increases ear and lung infections in children of smokers. FOLLOW-UP CARE: If you have been referred to a physician for follow-up care, call the physicians office for an appointment as you were instructed or within the next two days. If you experience worsening or a significant change in your symptoms, notify the physician immediately or return to the Emergency Department at any time for re-evaluation. Forms: Elevated Blood Pressure, Smoking Cessation Education, Return to Work Referrals: ISABELL HOBSON MD [NO LOCAL MD] - Follow up as needed
[2018-12-28 00:06] VITALS: BP 137/91
== END 2018-12-28 00:07 | disposition home or self-care (01) ==
LOC: ER 16:45
DX: J06.9 Acute upper respiratory infection, unspecified (principal); B97.89 Other viral agents as the cause of diseases classified elsewhere; R10.9 Unspecified abdominal pain; R05 Cough; R09.81 Nasal congestion; R53.83 Other fatigue; N28.9 Disorder of kidney and ureter, unspecified; R11.0 Nausea; F17.210 Nicotine dependence, cigarettes, uncomplicated
CPT/HCPCS: 36415; 71046; 76770; 80053; 81001; 83690; 85025; 87086; 99284

== ENCOUNTER 2019-02-22 11:18 | Emergency (ER) | payer SELFPAY ==
[2019-02-22] MEDS ORDERED: NORMAL SALINE 1000 ML 1,000 ML IV ONE (11:36)
[2019-02-22] MEDS ORDERED: BENZONATATE 100 MG CAPSULE PO ONE (11:36)
[2019-02-22] MEDS ORDERED: IBUPROFEN 600 MG TABLET PO ONE (11:36)
--- NOTE | 2019-02-22 11:38 | ER Document Report ---
ED Medical Screen (RME) - General Chief Complaint: Cold Symptoms Stated Complaint: COUGH Time Seen by Provider: 02/22/19 11:30 Notes: 43-year-old female presents to the emergency department with multiple chief complaints. Patient has had a hacking persistent cough x2 days that is nonproductive causing chest wall pain. Patient is also having right flank pain that radiates around to her right lower quadrant. She does have history of nephrolithiasis. States that her urine is darker in color but has no urinary frequency, urgency, dysuria. Patient denies fevers or chills, denies shortness of breath, denies central chest pain, denies miguelina sea/vomiting/diarrhea/constipation Exam: Lungs are clear to auscultation in all [place], regular cardiac rate and rhythm S1-S2 heard no murmurs, mild right CVAT, abdominal exam limited in triage room and absence of stretcher bed I have greeted and performed a rapid initial assessment of this patient. A comprehensive ED assessment and evaluation of the patient, analysis of test results and completion of medical decision making process will be conducted by an additional ED providers. TRAVEL OUTSIDE OF THE [place] IN LAST 30 DAYS: No - Related Data Allergies/Adverse Reactions: Antihistamines - Alkylamine Adverse Reaction (Verified 02/24/16 05:18) "allergy medicine" Adverse Reaction (Uncoded 07/13/15 13:43) Past Medical History Pulmonary Medical History: Reports: Hx COPD Neurological Medical History: Reports: Hx Migraine Renal/ Medical History: Reports: Hx Kidney Stones, Hx Ovarian Cysts. Denies: Hx Peritoneal Dialysis GI Medical History: Reports: Hx Gastroesophageal Reflux Disease Musculoskeltal Medical History: Reports Hx Arthritis Psychiatric Medical History: Reports: Hx Depression Past Surgical History: Reports: Hx Cholecystectomy, Hx Gynecologic Surgery - ovarian surgery, Hx Hysterectomy - Immunizations Immunizations up to date: Yes Hx Diphtheria, Pertussis, Tetanus Vaccination: Yes Physical Exam - Vital signs Vitals: Temp Pulse Resp BP Pulse Ox 98.1 F 91 16 128/105 H 95 02/22/19 11:28 02/22/19 11:28 02/22/19 11:28 02/22/19 11:28 02/22/19 11:28 Course - Vital Signs Vital signs: Temp Pulse Resp BP Pulse Ox 98.1 F 91 16 128/105 H 95 02/22/19 11:28 02/22/19 11:28 02/22/19 11:28 02/22/19 11:28 02/22/19 11:28
[2019-02-22 12:23] LABS: ABSOLUTE EOSINOPHILS # (AUTO) 0.5 10^3/uL (0.0-0.6); ABSOLUTE LYMPHOCYTES (AUTO) 1.4 10^3/uL (0.5-4.7); ABSOLUTE MONOCYTES (AUTO) 0.7 10^3/uL (0.1-1.4); ABSOLUTE NEUT (AUTO) 6.1 10^3/uL (1.7-8.2); BASOPHILS % (AUTO) 0.5 % (0-2); HEMATOCRIT 45.4 % (36.0-47.0); HEMOGLOBIN 15.4 g/dL (12.0-15.5); LYMPHOCYTES % (AUTO) 16.3 % (13-45); MEAN CORPUSCULAR HEMOGLOBIN 30.7 pg (27.0-33.4); MEAN CORPUSCULAR HGB CONC 33.9 g/dL (32.0-36.0); MEAN CORPUSCULAR VOLUME 91 fl (80-97); MONOCYTES % (AUTO) 7.6 % (3-13); PLATELET COUNT 236 10^3/uL (150-450); RED CELL DISTRIBUTION WIDTH 14.1 % (11.5-14.0); SEGMENTED NEUTROPHILS % (AUTO) 69.6 % (42-78); TOTAL CELLS COUNTED % (AUTO) 100 %; WHITE BLOOD COUNT 8.8 10^3/uL (4.0-10.5)
--- NOTE | 2019-02-22 12:26 | RADIOLOGY REPORT (SQ) ---
EXAM DESCRIPTION: CHEST 2 VIEWS COMPLETED DATE/TIME: 02/22/2019 12:16 pm REASON FOR STUDY: cough COMPARISON: 12/27/2018 EXAM PARAMETERS: NUMBER OF VIEWS: two views TECHNIQUE: Digital Frontal and Lateral radiographic views of the chest acquired. RADIATION DOSE: NA LIMITATIONS: none FINDINGS: LUNGS AND PLEURA: No opacities, masses or pneumothorax. No pleural effusion. MEDIASTINUM AND HILAR STRUCTURES: No masses or contour abnormalities. HEART AND VASCULAR STRUCTURES: Heart normal size. No evidence for failure. BONES: No acute findings. HARDWARE: None in the chest. OTHER: No other significant finding. IMPRESSION: NO ACUTE RADIOGRAPHIC FINDING IN THE CHEST. TECHNICAL DOCUMENTATION: JOB ID: [id number] [employer]- All Rights Reserved Reading location - IP/workstation name: [email or web address]
[2019-02-22 12:41] LABS: APPEARANCE,URINE SLIGHTLY-CLOUDY; BILIRUBIN,URINE NEGATIVE (NEGATIVE); COLOR,URINE YELLOW; GLUCOSE, URINE NEGATIVE (NEGATIVE); KETONES,URINE NEGATIVE (NEGATIVE); LEUKOCYTE ESTERASE,URINE MODERATE (NEGATIVE); NITRITE,URINE NEGATIVE (NEGATIVE); PROTEIN,URINE NEGATIVE (NEGATIVE); URINE SPECIFIC GRAVITY 1.023; UROBILINOGEN,URINE NEGATIVE mg/dL (<2.0)
[2019-02-22 12:45] LABS: ALBUMIN 4.2 g/dL (3.5-5.0); ALKALINE PHOSPHATASE 73 U/L (38-126); ANION GAP 5 (5-19); ASPARTATE AMINO TRANSFERASE 19 U/L (14-36); BILIRUBIN,DIRECT 0.1 mg/dL (0.0-0.4); BILIRUBIN,TOTAL 0.5 mg/dL (0.2-1.3); BLOOD UREA NITROGEN 15 mg/dL (7-20); CALCIUM 9.9 mg/dL (8.4-10.2); CARBON DIOXIDE 32 mmol/L (22-30); CHLORIDE 104 mmol/L (98-107); GLUCOSE 87 mg/dL (75-110); POTASSIUM 4.5 mmol/L (3.6-5.0); TOTAL PROTEIN 7.5 g/dL (6.3-8.2)
[2019-02-22 17:24] VITALS: BP 144/83
--- NOTE | 2019-02-22 18:16 | ER Document Report ---
Entered by REJI PADILLA SCRIBE 02/22/19 2951 Acting as scribe for:VLAD AUGUSTINE DO ED General - General Chief Complaint: Cough Stated Complaint: COUGH Time Seen by Provider: 02/22/19 11:30 Mode of Arrival: Ambulatory Information source: Patient Notes: This 43-year-old female patient presents to the emergency department today with complaints of shortness of breath and a cough. Patient states her shortness of breath gets worse if she tries to lie down. Patient is a smoker and continues to smoke. Patient states she will not take oral steroids as they "pack on the pounds". TRAVEL OUTSIDE OF THE [place] IN LAST 30 DAYS: No - Related Data Allergies/Adverse Reactions: Antihistamines - Alkylamine Adverse Reaction (Verified 02/24/16 05:18) "allergy medicine" Adverse Reaction (Uncoded 07/13/15 13:43) Past Medical History - General Information source: Patient - Social History Smoking Status: Current Every Day Smoker Cigarette use (# per day): Yes Chew tobacco use (# tins/day): No Frequency of alcohol use: Occasional Drug Abuse: None Lives with: Family Family History: Reviewed & Not Pertinent, Thyroid Disfunction - brother Patient has suicidal ideation: No Patient has homicidal ideation: No Pulmonary Medical History: Reports: Hx COPD Neurological Medical History: Reports: Hx Migraine Renal/ Medical History: Reports: Hx Kidney Stones, Hx Ovarian Cysts. Denies: Hx Peritoneal Dialysis GI Medical History: Reports: Hx Gastroesophageal Reflux Disease Musculoskeletal Medical History: Reports Hx Arthritis Psychiatric Medical History: Reports: Hx Depression Past Surgical History: Reports: Hx Cholecystectomy, Hx Gynecologic Surgery - ovarian surgery, Hx Hysterectomy - Immunizations Immunizations up to date: Yes Hx Diphtheria, Pertussis, Tetanus Vaccination: Yes Review of Systems - Review of Systems Constitutional: No symptoms reported EENT: No symptoms reported Cardiovascular: No symptoms reported Respiratory: See HPI, Cough, Short of breath Gastrointestinal: See HPI, Nausea Genitourinary: No symptoms reported Female Genitourinary: No symptoms reported Musculoskeletal: No symptoms reported Skin: No symptoms reported Hematologic/Lymphatic: No symptoms reported Neurological/Psychological: No symptoms reported -: Yes All other systems reviewed and negative Physical Exam - Vital signs Vitals: Temp Pulse Resp BP Pulse Ox 98.1 F 91 16 128/105 H 95 02/22/19 11:28 02/22/19 11:28 02/22/19 11:28 02/22/19 11:28 02/22/19 11:28 Interpretation: Normal - General General appearance: Appears well, Alert - HEENT Head: Normocephalic, Atraumatic Eyes: Normal Pupils: PERRL Nasal: Clear rhinorrhea Mucous membranes: Dry - Respiratory Respiratory status: No respiratory distress Chest status: Nontender Breath sounds: Normal Chest palpation: Normal - Cardiovascular Rhythm: Regular Heart sounds: Normal auscultation Murmur: No - Abdominal Inspection: Normal Distension: No distension Bowel sounds: Normal Tenderness: Nontender Organomegaly: No organomegaly - Back Back: Normal, Nontender - Extremities General upper extremity: Normal inspection, Nontender, Normal color, Normal ROM, Normal temperature General lower extremity: Normal inspection, Nontender, Normal color, Normal ROM, Normal temperature, Normal weight bearing. No: Milagro's sign - Neurological Neuro grossly intact: Yes Cognition: Normal Orientation: AAOx4 [place] Coma Scale Eye Opening: Spontaneous [place] Coma Scale Verbal: Oriented [place] Coma Scale Motor: Obeys Commands [place] Coma Scale Total: 15 Speech: Normal Motor strength normal: LUE, RUE, LLE, RLE Sensory: Normal - Psychological Associated symptoms: Normal affect, Normal mood - Skin Skin Temperature: Warm Skin Moisture: Dry Skin Color: Normal Course - Re-evaluation Re-evalutation: 02/22/19 18:15 Patient is a 43-year-old female who comes in complaining about a cough. States that is worse at night when she lays down. His upper respiratory symptoms. P atient still smokes. No evidence for wheezing. Blood work and chest x-ray within normal limits. Patient will be given a prescription for fluticasone as symptoms are consistent with postnasal drip. Does not want to do an oral steroid. Stable for discharge. Return if further concerns. - Vital Signs Vital signs: Temp Pulse Resp BP Pulse Ox 98.0 F 80 16 144/83 H 98 02/22/19 17:23 02/22/19 17:23 02/22/19 17:23 02/22/19 17:23 02/22/19 17:23 - Laboratory Result Diagrams: 02/22/19 12:00 02/22/19 12:00 Laboratory results interpreted by me: 02/22/19 02/22/1902/22/19 12:00 12:00 12:00 RDW 14.1 H Carbon Dioxide 32 H Urine Blood MODERATE H Ur Leukocyte Esterase MODERATE H Discharge - Discharge Clinical Impression: Postnasal drip Upper respiratory infection Qualifiers: URI type: unspecified URI Qualified Code(s): J06.9 - Acute upper respiratory infection, unspecified Condition: Stable Disposition: HOME, SELF-CARE Instructions: Upper Respiratory Illness ([facility]) Prescriptions: Fluticasone Propionate 15.8 ml NS BID #1 spray.susp I personally performed the services described in the documentation, reviewed and edited the documentation which was dictated to the scribe in my presence, and it accurately records my words and actions.
== END 2019-02-22 17:23 | disposition home or self-care (01) ==
LOC: ER 11:18
DX: R09.82 Postnasal drip (principal); J06.9 Acute upper respiratory infection, unspecified; R05 Cough; R06.02 Shortness of breath; F17.210 Nicotine dependence, cigarettes, uncomplicated; J44.9 Chronic obstructive pulmonary disease, unspecified; Z90.49 Acquired absence of other specified parts of digestive tract; Z90.710 Acquired absence of both cervix and uterus; Z87.442 Personal history of urinary calculi
CPT/HCPCS: 99284; 96360; 36415; 85025; 80053; 81001; 71046; J7030

== ENCOUNTER 2019-11-16 10:54 | Emergency (ER) | payer SELFPAY ==
[2019-11-16] MEDS ORDERED: ONDANSETRON 4 MG TAB.RAPDIS PO ONE (11:09)
[2019-11-16] MEDS ORDERED: ASPIRIN 81 MG TABLET, CHEWABLE PO ONE (11:09)
--- NOTE | 2019-11-16 11:11 | ER Document Report ---
ED Medical Screen (RME) - General Chief Complaint: Palpitations Stated Complaint: FAST HEART RATE,LEFT ARM TINGLING Time Seen by Provider: 11/16/19 11:05 Mode of Arrival: Ambulatory Information source: Patient Notes: Patient presents complaining of midsternal chest discomfort that she describes as a heaviness for the past 5 days. Patient states she has had left arm tingling today which prompted her visit. Patient states periodically her heart rate will race and has been as high as 126. Patient states she occasionally gets nauseated and diaphoretic. Patient denies any cough or cold symptoms. Patient denies any significant past medical history. I have greeted and performed a rapid initial assessment of this patient. A comprehensive ED assessment and evaluation of the patient, analysis of test results and completion of the medical decision making process will be conducted by additional ED providers. TRAVEL OUTSIDE OF THE [place] IN LAST 30 DAYS: No - Related Data Allergies/Adverse Reactions: Antihistamines - Alkylamine Adverse Reaction (Verified 11/16/19 11:05) "allergy medicine" Adverse Reaction (Uncoded 11/16/19 11:05) Past Medical History Pulmonary Medical History: Reports: Hx COPD Neurological Medical History: Reports: Hx Migraine Renal/ Medical History: Reports: Hx Kidney Stones, Hx Ovarian Cysts. Denies: Hx Peritoneal Dialysis GI Medical History: Reports: Hx Gastroesophageal Reflux Disease Musculoskeltal Medical History: Reports Hx Arthritis Psychiatric Medical History: Reports: Hx Depression Past Surgical History: Reports: Hx Cholecystectomy, Hx Gynecologic Surgery - ovarian surgery, Hx Hysterectomy - Immunizations Immunizations up to date: Yes Hx Diphtheria, Pertussis, Tetanus Vaccination: Yes Physical Exam - Vital signs Vitals: Temp Pulse Resp BP Pulse Ox 98.1 F 88 16 154/83 H 98 11/16/19 11:04 11/16/19 11:11/16/19 11:11/16/19 11:11/16/19 11:04 - General General appearance: Appears well, Alert - Respiratory Respiratory status: No respiratory distress Breath sounds: Normal - Cardiovascular Rhythm: Regular. No: Tachycardia Heart sounds: S1 appreciated, S2 appreciated Course - Vital Signs Vital signs: Temp Pulse Resp BP Pulse Ox 98.1 F 88 16 154/83 H 98 11/16/19 11:04 11/16/19 11:04 11/16/19 11:11/16/19 11:04 11/16/19 11:04
[2019-11-16 11:36] LABS: ABSOLUTE EOSINOPHILS # (AUTO) 0.2 10^3/uL (0.0-0.6); ABSOLUTE LYMPHOCYTES (AUTO) 1.6 10^3/uL (0.5-4.7); ABSOLUTE MONOCYTES (AUTO) 0.6 10^3/uL (0.1-1.4); ABSOLUTE NEUT (AUTO) 7.4 10^3/uL (1.7-8.2); BASOPHILS % (AUTO) 0.4 % (0-2); HEMATOCRIT 45.9 % (36.0-47.0); HEMOGLOBIN 15.6 g/dL (12.0-15.5); LYMPHOCYTES % (AUTO) 16.5 % (13-45); MEAN CORPUSCULAR HEMOGLOBIN 30.6 pg (27.0-33.4); MEAN CORPUSCULAR HGB CONC 33.9 g/dL (32.0-36.0); MEAN CORPUSCULAR VOLUME 90 fl (80-97); MONOCYTES % (AUTO) 5.8 % (3-13); PLATELET COUNT 242 10^3/uL (150-450); RED BLOOD COUNT 5.08 10^6/uL (3.72-5.28); SEGMENTED NEUTROPHILS % (AUTO) 75.3 % (42-78); TOTAL CELLS COUNTED % (AUTO) 100 %; WHITE BLOOD COUNT 9.8 10^3/uL (4.0-10.5)
[2019-11-16 11:55] LABS: ALBUMIN 4.4 g/dL (3.5-5.0); ALKALINE PHOSPHATASE 75 U/L (38-126); ANION GAP 8 (5-19); ASPARTATE AMINO TRANSFERASE 28 U/L (14-36); BILIRUBIN,DIRECT 0.2 mg/dL (0.0-0.4); BILIRUBIN,TOTAL 1.1 mg/dL (0.2-1.3); BLOOD UREA NITROGEN 11 mg/dL (7-20); CALCIUM 9.5 mg/dL (8.4-10.2); CARBON DIOXIDE 29 mmol/L (22-30); CHLORIDE 102 mmol/L (98-107); GLUCOSE 110 mg/dL (75-110); POTASSIUM 4.6 mmol/L (3.6-5.0); TOTAL PROTEIN 7.3 g/dL (6.3-8.2)
--- NOTE | 2019-11-16 12:27 | ER Document Report ---
ED General - General Chief Complaint: Palpitations Stated Complaint: FAST HEART RATE,LEFT ARM TINGLING Time Seen by Provider: 11/16/19 11:05 Mode of Arrival: Ambulatory TRAVEL OUTSIDE OF THE [place] IN LAST 30 DAYS: No - HPI Notes: 44-year-old female presents with multiple complaints. Patient states that since Thursday, 5 days ago, she has been feeling chest tightness and palpitations. She states that the chest tightness, occasionally pressure, has been constant for the past 5 days. Seems to come on when she is at work, some resolution at the end of the day. She cannot identify any aggravating or relieving factors. She states that today she had a sensation of pain and numbness in her left arm and left leg. The pain in her left arm was located about her antecubital fossa. Additionally states that she has been checking her blood pressure at work for the past 2 to 3 months, she has been noticing high blood pressure, typically is in the 150s, occasionally her pulse will be elevated as well, recently was 126. She feels palpitations with this. She reports generalized fatigue, feels sweaty all the time, some nausea and decreased appetite. She states concerned that she might be going through menopause. Has a history of PCOS and has chronic crampy lower abdominal pain. - Related Data Allergies/Adverse Reactions: Antihistamines - Alkylamine Adverse Reaction (Verified 11/16/19 11:05) "allergy medicine" Adverse Reaction (Uncoded 11/16/19 11:05) Home Medications: denies Past Medical History - General Information source: Patient - Social History Smoking Status: Current Every Day Smoker Chew tobacco use (# tins/day): No Frequency of alcohol use: Social Drug Abuse: None Family History: Thyroid Disfunction - brother Patient has homicidal ideation: No Pulmonary Medical History: Reports: Hx COPD Neurological Medical History: Reports: Hx Migraine Renal/ Medical History: Reports: Hx Kidney Stones, Hx Ovarian Cysts. Denies: Hx Peritoneal Dialysis GI Medical History: Reports: Hx Gastroesophageal Reflux Disease Musculoskeletal Medical History: Reports Hx Arthritis Psychiatric Medical History: Reports: Hx Depression Past Surgical History: Reports: Hx Cholecystectomy, Hx Gynecologic Surgery - ovarian surgery, Hx Hysterectomy - Immunizations Immunizations up to date: Yes Hx Diphtheria, Pertussis, Tetanus Vaccination: Yes Review of Systems - Review of Systems Constitutional: denies: Fever EENT: denies: Double vision Cardiovascular: Chest pain, Palpitations Respiratory: denies: Short of breath Gastrointestinal: Nausea Genitourinary: denies: Dysuria Female Genitourinary: denies: Vaginal discharge Musculoskeletal: Muscle pain Skin: No symptoms reported Hematologic/Lymphatic: No symptoms reported Neurological/Psychological: Headaches Physical Exam - Vital signs Vitals: Temp Pulse Resp BP Pulse Ox 98.1 F 88 16 154/83 H 98 11/16/19 11:04 11/16/19 11:04 11/16/19 11:04 11/16/19 11:04 11/16/19 11:04 - General General appearance: Appears well In distress: None - HEENT Head: Normocephalic, Atraumatic Eyes: No: Scleral icterus Extraocular movements intact: Yes Pupils: PERRL - Respiratory Chest status: Nontender Breath sounds: Normal - Cardiovascular Rhythm: Regular Heart sounds: Normal auscultation - Abdominal Inspection: Obese Distension: No distension Bowel sounds: Normal Tenderness: Nontender - Extremities General upper extremity: Normal inspection, Normal ROM General lower extremity: Normal inspection, Normal ROM. No: Edema - Neurological Neuro grossly intact: Yes Cognition: Normal Orientation: AAOx4 Cranial nerves: Normal Motor strength normal: LUE, RUE, LLE, RLE Sensory: Normal - Psychological Associated symptoms: Normal affect - Skin Skin Temperature: Warm Course - Re-evaluation Re-evalutation: 44-year-old female with multiple complaints. She has had constant chest pain for the past 5 days. She does not report any exertional symptoms. No known history of heart disease. Low suspicion for cardiac etiology. Age and obesity give her risk factors. No previous diagnosis of hypertension, however given her elevated blood pressure readings, suspect that she does have hypertension. We will give her a dose of amlodipine now. Potentially her symptoms are from high blood pressure. Given her complaints of fatigue and sweating, will check TSH to evaluate for thyroid dysfunction. HEART Score: History 0 ECG 0 Age 1 Risk Factors 1 Troponin 0 Total: 2 If HEART score is = 3 AND both tronponin measurments are normal, the 30 day risk of a major adverse cardiac event (all-cause mortality, myocardia infarction or need for coronary revscularization) is < 1% (Sensitivity 100%, NPV 100%). 11/16/19 14:58 Labs reviewed. No leukocytosis or left shift. No acute anemia, hemoglobin slightly elevated. Electrolytes within normal limits. No elevation of LFTs. Initial troponin negative. TSH slightly elevated, however T4 is within normal limits. Urine is not suggestive of UTI. 11/16/19 15:26 Troponin negative x2 Patient was updated on results. She reports feeling better and would like to go home now. I have written for amlodipine 5 mg daily. I discussed with her need to establish with PCP, I have provided clinic follow-up information for her. Chest pain in a patient without evidence of cardiac or other serious etiology on workup today. I discussed with patient that, based on their age, risk factors and emergency department testing today, the likelihood that their symptoms are related to a heart attack is very low (estimated risk of heart attack or over the next 30 days of less than 1%). The patient demonstrates decision making capacity and has verbalized an understanding of these risks to me. Based on this, the patient has chosen to follow-up as an outpatient. Usual chest pain return precautions reviewed. The patient states understanding and agreement with this plan. Return precautions were given, patient stable at time of discharge. - Vital Signs Vital signs: Temp Pulse Resp BP Pulse Ox 98.1 F 88 14 130/81 H 97 11/16/19 11:04 11/16/19 11:04 11/16/19 15:09 11/16/19 14:00 11/16/19 15:09 - Laboratory Result Diagrams: 11/16/19 11:20 11/16/19 11:20 Laboratory results interpreted by me: 11/16/19 11/16/19 11/16/19 11:20 11:20 13:54 Hgb 15.6 H TSH 4.88 H Urine Blood MODERATE H - Diagnostic Test Radiology reviewed: Image reviewed, Reports reviewed - EKG Interpretation by Me Additional EKG results interpreted by me: EKG is interpreted by me. Normal sinus rhythm with a rate 81. Narrow QRS, QTC within normal limits. No ST elevation. Discharge - Discharge Clinical Impression: Elevated blood pressure reading Condition: Stable Disposition: HOME, SELF-CARE Additional Instructions: Please begin amlodipine for high blood pressure. Please try to establish with PCP, I provided resource for the [facility] and the [facility]. Please return to the ED for any concerning or worsening symptoms. Prescriptions: Amlodipine Besylate [Norvasc 5 mg Tablet] 5 mg PO DAILY #30 tablet Forms: Elevated Blood Pressure Referrals: [facility] [Provider Group] - Follow up as needed
--- NOTE | 2019-11-16 12:36 | RADIOLOGY REPORT (SQ) ---
EXAM DESCRIPTION: CHEST SINGLE VIEW IMAGES COMPLETED DATE/TIME: 11/16/2019 12:07 pm REASON FOR STUDY: cp COMPARISON: 02/22/2019 EXAM PARAMETERS: NUMBER OF VIEWS: One view. TECHNIQUE: Single frontal radiographic view of the chest acquired. RADIATION DOSE: NA LIMITATIONS: None. FINDINGS: LUNGS AND PLEURA: No opacities, masses or pneumothorax. No pleural effusion. MEDIASTINUM AND HILAR STRUCTURES: No masses. Contour normal. HEART AND VASCULAR STRUCTURES: Heart normal in size. Normal vasculature. BONES: No acute findings. HARDWARE: None in the chest. OTHER: No other significant finding. IMPRESSION: NO ACUTE RADIOGRAPHIC FINDING IN THE CHEST. TECHNICAL DOCUMENTATION: JOB ID: [id number] 2010 [employer]- All Rights Reserved Reading location - IP/workstation name: [email or web address]
[2019-11-16] MEDS ORDERED: NORMAL SALINE 1000 ML 1,000 ML IV ONE (12:40)
[2019-11-16] MEDS ORDERED: KETOROLAC TROMETHAMINE INJ/PF 30 MG/1 ML SDV IV ONE (12:41)
[2019-11-16] MEDS ORDERED: AMLODIPINE BESYLATE 5 MG TABLET PO ONE (12:41)
[2019-11-16 13:22] LABS: FREE T4 (FREE THYROXINE) 1.42 ng/dL (0.78-2.19)
[2019-11-16 13:36] LABS: THYROID STIMULATING HORMONE 4.88 uIU/mL (0.47-4.68)
[2019-11-16 14:11] LABS: APPEARANCE,URINE SLIGHTLY-CLOUDY; BILIRUBIN,URINE NEGATIVE (NEGATIVE); COLOR,URINE YELLOW; GLUCOSE, URINE NEGATIVE (NEGATIVE); KETONES,URINE NEGATIVE (NEGATIVE); LEUKOCYTE ESTERASE,URINE NEGATIVE (NEGATIVE); NITRITE,URINE NEGATIVE (NEGATIVE); PROTEIN,URINE NEGATIVE (NEGATIVE); URINE SPECIFIC GRAVITY 1.012; UROBILINOGEN,URINE NEGATIVE mg/dL (<2.0)
[2019-11-16 15:47] VITALS: BP 139/84
--- NOTE | 2019-11-16 21:48 | EKG REPORT ---
SEVERITY:- BORDERLINE ECG - SINUS RHYTHM LVH BY VOLTAGE : Confirmed by: Kamini Luo MD 16-Nov-2019 21:48:30
== END 2019-11-16 15:47 | disposition home or self-care (01) ==
LOC: ER 10:54
DX: R03.0 Elevated blood-pressure reading, without diagnosis of hypertension (principal); R00.2 Palpitations; R07.9 Chest pain, unspecified; R20.0 Anesthesia of skin; M79.10 Myalgia, unspecified site; Z88.8 Allergy status to other drugs, medicaments and biological substances; F17.200 Nicotine dependence, unspecified, uncomplicated; J44.9 Chronic obstructive pulmonary disease, unspecified
CPT/HCPCS: 93005; 99285; 96361; 96374; 36415; 84439; 83735; 84443; 84703; 85025; 80053; 81001; 84484; 71045; 93010; S0119; J1885; J7030